=== PATIENT | female | born 1990 | race Caucasian/White ===

== ENCOUNTER 2023-03-28 09:07 | Emergency (ER) | payer OTHER ==
[~2023-03-28] VITALS: Ht 154.9 cm; Wt 59.1 kg
[2023-03-28] MEDS ORDERED: LORazepam 2 MG/ML 1ML VIAL IV STA ×3 (09:13→14:38)
[2023-03-28] MEDS ORDERED: NS 1,000 ML IV ONE (09:15)
[2023-03-28] MEDS ORDERED: B-COTAB25 PO (09:33)
[2023-03-28] MEDS ORDERED: CITA20TA6 PO (09:33)
[2023-03-28] MEDS ORDERED: VITA500C24 PO (09:33)
[2023-03-28] MEDS ORDERED: BUPR8SUB SL ×2 (09:33→11:53)
[2023-03-28] MEDS ORDERED: LORazepam 1 MG TAB PO STA (10:30)
[2023-03-28 11:08] LABS: BASO % 0.1 % (0.0-1.0); HEMATOCRIT 40.6 % (36.0-47.0); HEMOGLOBIN 13.8 g/dl (12.0-15.5); LYMPH % 11.3 % (24.0-44.0); MEAN CORPUSCULAR HEMOGLOBIN 29.1 pg (27.0-33.0); MEAN CORPUSCULAR VOLUME 85.7 fl (80.0-96.0); MONO # 0.2 10^3/uL (0.0-0.8); MONO % 2.5 % (2.0-8.0); NEUTROPHILS # 7.9 10^3/uL (1.5-8.5); NEUTROPHILS % 85.7 % (36.0-66.0); PLATELET COUNT, AUTOMATED 531 10^3/uL (150-450); RED BLOOD COUNT 4.74 10^6/uL (4.00-5.40); WHITE BLOOD COUNT 9.2 10^3/uL (4.0-10.0)
[2023-03-28 11:41] LABS: ETHYL ALCOHOL (ETHANOL) < 0.003 % (0.000-0.010)
[2023-03-28 11:42] LABS: ACETAMINOPHEN LEVEL 4.2 UG/ML (10.0-20.0); SALICYLATE LEVEL < 3.0 MG/DL (<30)
[2023-03-28 11:43] LABS: ALBUMIN 4.6 G/DL (3.2-5.2); ALKALINE PHOSPHATASE 94 U/L (46-116); ALT/SGPT 26 U/L (7.0-40); AST/SGOT 14 U/L (<34); BILIRUBIN,DIRECT 0.1 MG/DL (<0.4); BILIRUBIN,TOTAL 0.4 MG/DL (0.3-1.2); BLOOD UREA NITROGEN 13 MG/DL (9-23); CALCIUM LEVEL 10.5 MG/DL (8.5-10.1); CARBON DIOXIDE LEVEL 24 MMOL/L (20-31); CHLORIDE LEVEL 102 MMOL/L (98-107); CPK CREATINE PHOSPHOKINASE 67 U/L (34-145); CREATININE FOR GFR 0.43 MG/DL (0.55-1.30); GLOMERULAR FILTRATION RATE > 60.0 (>60); GLUCOSE, FASTING 107 MG/DL (60-100); SODIUM LEVEL 137 MMOL/L (136-145); TOTAL PROTEIN 8.7 G/DL (5.7-8.2)
[2023-03-28 11:44] LABS: THYROID STIMULATING HORMONE 0.215 uIU/ML (0.55-4.78)
[2023-03-28 15:01] VITALS: BP 140/86; TEMP 100; O2SAT 98
== END 2023-03-28 15:03 ==
LOC: M ED 09:07
DX: F19.10 Other psychoactive substance abuse, uncomplicated (principal); Z88.0 Allergy status to penicillin; Z79.899 Other long term (current) drug therapy
CPT/HCPCS: 80048; 80076; 80143; 82077; 82550; 83605; 84443; 85025; 93005; 93041; 94760; 96361; 96374; 96376; 99285; J2060